=== PATIENT | female | born 1960 | race Caucasian/White ===

== ENCOUNTER → 2016-10-03 | Outpatient (CLI) | payer OTHER | LOC: FIMAGING 19:24 | PROVIDERS: ATTEND Family Medicine | DX: M51.36 Other intervertebral disc degeneration, lumbar region (principal) ==

== ENCOUNTER → 2017-01-19 | Outpatient (CLI) | payer OTHER | LOC: FIMAGING 13:56 | PROVIDERS: ATTEND Family Medicine | DX: Z12.31 Encounter for screening mammogram for malignant neoplasm of breast (principal) | CPT/HCPCS: G0202 ==

== ENCOUNTER → 2017-03-14 | Outpatient (CLI) | payer OTHER | LOC: FLAB 12:57 | PROVIDERS: ATTEND Family Medicine | DX: Z01.818 Encounter for other preprocedural examination (principal) ==

== ENCOUNTER 2017-07-07 22:30 | Emergency (ER) | payer OTHER ==
[2017-07-07 22:42] VITALS: TEMP 97.7
--- NOTE | 2017-07-07 23:01 | EDPHY ---
H & P Stated Complaint: TRIPPED AND FELL HITTING ELBOW INTO RIBS. NO LOC Time Seen by Provider: 07/07/17 22:43 HPI/ROS: Chief Complaint: Right rib and abdominal pain status post fall HPI: 56-year-old woman had a mechanical trip and fall at the gas station approximately 6 hr ago. Patient has been having worsening pain in her right lower ribs right abdomen since that time. It hurts to move into press on her chest abdominal wall. Does not hurt to take a deep breath. She is not feeling short of breath. No cough. No nausea or vomiting. Did not hit her head. She had no loss of consciousness. She did hit her left knee but she has been ambulating without any difficulty. She did take 800 mg of ibuprofen without any significant relief. ROS: 10 point Review of Systems is negative except as noted in the HPI. PMH: Spinal decompression Social History: No smoking, rare alcohol, no recreational drug use Family History: non-contributory Physical Exam: Gen: Awake, Alert, Airway Intact HEENT: Head: Atraumatic Eyes: PERRLA, EOMI Nose: No epistaxis Mouth: Normal dentition, Airway patent Face: No deformity Neck: non-tender, no stepoff, Full ROM without pain Chest: She has got moderate tenderness in the anterior lateral right ribs below rib 7, lungs CTA Heart: normal heart tones Abd: soft, she has tenderness in her right abdominal wall to palpation. This extends in her right upper and lower quadrant. There is voluntary guarding Pelvis: non-tender, stable to AP and Lateral compression Back: atraumatic, no midline tenderness Ext: Mild left knee contusion, full range of motion of pain Skin: no rash Neuro: CN II-XII intact, Strength 5/5 in all extremities, sensation intact in all extremities - Personal History Current Tetanus/Diphtheria Vaccine: Yes Current Tetanus Diphtheria and Acellular Pertussis (TDAP): Yes - Medical/Surgical History Hx Asthma: No Hx Chronic Respiratory Disease: No Hx Diabetes: No Hx Cardiac Disease: No Hx Renal Disease: No Hx Cirrhosis: No Hx Alcoholism: No Hx HIV/AIDS: No Hx Splenectomy or Spleen Trauma: No Other PMH: DENIES. BACK SURGERY - Social History Smoking Status: Never smoked Constitutional: Initial Vital Signs Temperature (C) 36.5 C 07/07/17 22:38 Heart Rate 78 07/07/17 22:38 Respiratory Rate 18 07/07/17 22:38 Blood Pressure 161/103 H 07/07/17 22:38 O2 Sat (%) 97 07/07/17 22:38 O2 Delivery Mode Room Air Allergies/Adverse Reactions: cefaclor [From Ceclor] Allergy (Intermediate, Verified 04/16/12 13:45) Hives Sulfa (Sulfonamide Antibiotics) Allergy (Verified 07/07/17 22:42) Home Medications: Medication Instructions Recorded Multivitamin [One Daily] 1 each PO 07/07/17 Hydrocodone/Acetaminophen 1 - 2 each PO Q4-6PRN PRN #10 07/08/17 [Hydrocodon-Acetaminophen 5-325] tablet Medical Decision Making - Diagnostics Imaging Results: CT scan abdomen pelvis show no acute intra-abdominal process. She does have some lumbar stenosis which is nonacute. Interpreted by Dr. Nava. Imaging: Discussed imaging studies w/ call center agent Radiologist ED Course/Re-evaluation: 48-year-old woman status post fall with right abdominal and chest wall tenderness. No abnormalities on CT scan. Symptoms are consistent with abdominal wall contusion. Pain is controlled here. Will discharge continue with ibuprofen and adding on a hydrocodone as needed. She will follow up with primary care physician and return for any worsening symptoms. - Data Points Laboratory Results: Laboratory Results 07/07/17 23:15 07/07/17 23:15 07/07/17 07/07/17 07/07/17 23:55 23:15 23:15 WBC 9.81 10^3/uL H 10^3/uL (3.80-9.50) RBC 4.08 10^6/uL L 10^6/uL (4.18-5.33) Hgb 13.3 g/dL g/dL (12.6-16.3) Hct 37.7 % L % (38.0-47.0) MCV 92.4 fL fL (81.5-99.8) MCH 32.6 pg pg (27.9-34.1) MCHC 35.3 g/dL g/dL (32.4-36.7) RDW 11.9 % % (11.5-15.2) Plt Count 218 10^3/uL 10^3/uL (150-400) MPV 10.5 fL fL (8.7-11.7) Neut % (Auto) 60.1 % % (39.3-74.2) Lymph % (Auto) 28.2 % % (15.0-45.0) [place] % (Auto) 8.7 % % (4.5-13.0) Eos % (Auto) 2.0 % % (0.6-7.6) Baso % (Auto) 0.7 % % (0.3-1.7) Nucleat RBC Rel Count 0.0 % % (0.0-0.2) Absolute Neuts (auto) 5.89 10^3/uL 10^3/uL (1.70-6.50) Absolute Lymphs (auto) 2.77 10^3/uL 10^3/uL (1.00-3.00) Absolute Monos (auto) 0.85 10^3/uL H 10^3/uL (0.30-0.80) Absolute Eos (auto) 0.20 10^3/uL 10^3/uL (0.03-0.40) Absolute Basos (auto) 0.07 10^3/uL 10^3/uL (0.02-0.10) Absolute Nucleated RBC 0.00 10^3/uL 10^3/uL (0-0.01) Immature Gran % 0.3 % % (0.0-1.1) Immature Gran # 0.03 10^3/uL 10^3/uL (0.00-0.10) Sodium 141 mEq/L mEq/L (135-145) Potassium 3.7 mEq/L mEq/L (3.5-5.2) Chloride 108 mEq/L mEq/L (97-110) Carbon Dioxide 19 mEq/l L mEq/l (22-31) Anion Gap 14 mEq/L mEq/L (8-16) BUN 16 mg/dL mg/dL (7-23) Creatinine 0.7 mg/dL mg/dL (0.6-1.0) Estimated GFR > 60 Glucose 91 mg/dL mg/dL (70-100) Calcium 9.3 mg/dL mg/dL (8.5-10.4) Urine Color COLORLESS Urine Appearance CLEAR Urine pH 6.0 (5.0-7.5) Ur Specific [place] 1.002 (1.002-1.030) Urine Protein NEGATIVE (NEGATIVE) Urine Ketones NEGATIVE (NEGATIVE) Urine Blood NEGATIVE (NEGATIVE) Urine Nitrate NEGATIVE (NEGATIVE) Urine Bilirubin NEGATIVE (NEGATIVE) Urine Urobilinogen NEGATIVE EU EU (0.2-1.0) Ur Leukocyte Esterase TRACE H (NEGATIVE) Urine RBC NONE SEEN /hpf /hpf (0-3) Urine WBC 1-3 /hpf /hpf (0-3) Ur Epithelial Cells NONE SEEN /lpf /lpf (NONE-1+) Urine Glucose NEGATIVE (NEGATIVE) Medications Given: Discontinued Medications Morphine Sulfate (Morphine) 4 mg IVP ONCE ONE Stop: 07/07/17 22:58 Last Admin: 07/07/17 23:12 Dose: 4 mg Departure - Departure Disposition: Home, Routine, Self-Care Clinical Impression: Abdominal wall contusion Condition: Good Instructions: Contusion in Adults (ED) Additional Instructions: He may take ibuprofen, 600 mg 3 times a day for pain. You may take hydrocodone with acetaminophen for breakthrough pain. Follow up with your primary care physician in 2-3 days for further evaluation. Return to the emergency department for worsening pain, shortness of breath, fevers, chills, cough, or any other concerns. Referrals: MIGEL KRAUSE [Primary Care Provider] - As per Instructions Prescriptions: Hydrocodone/Acetaminophen [Hydrocodon-Acetaminophen 5-325] 1 - 2 each PO Q4- 6PRN PRN #10 tablet PRN Reason: Pain, Severe
[2017-07-07 23:28] LABS: PLATELET COUNT 218 10^3/uL (150-400)
[2017-07-08] MEDS ORDERED: IOPAMIDOL (ISOVUE-300) 100 ML BTL ONE (00:13)
[2017-07-08 01:05] VITALS: O2SAT 96
[2017-07-08 01:58] VITALS: BP 138/80; PULSE 80; RESP 16
== END 2017-07-08 01:58 | disposition home or self-care (01) ==
DX: S30.1XXA Contusion of abdominal wall, initial encounter (principal); W01.0XXA Fall on same level from slipping, tripping and stumbling without subsequent striking against object, initial encounter; Y92.524 Gas station as the place of occurrence of the external cause; Y93.89 Activity, other specified
CPT/HCPCS: 96374; Q9967